=== PATIENT | male | born 1935 | race Two or more races ===

== ENCOUNTER 2025-08-02 09:06 | Inpatient (IN) | payer OTHER ==
[~2025-08-02] VITALS: Ht 157.5 cm; Wt 63.5 kg
[2025-08-02] MEDS ORDERED: OXYBUTYNIN CHLOR5 M1 PO (09:29)
[2025-08-02] MEDS ORDERED: CHILDREN'S ASPI81 MG PO (09:29)
[2025-08-02] MEDS ORDERED: IRBESARTAN75 MG PO (09:29)
[2025-08-02] MEDS ORDERED: GABAPENTIN300 M2 PO (09:29)
[2025-08-02] MEDS ORDERED: METFORMIN HCL500 M3 PO (09:30)
[2025-08-02] MEDS ORDERED: KAPSPARGO SPRIN25 MG PO (09:30)
[2025-08-02] MEDS ORDERED: GLIPIZIDE XL2.5 MG (09:30)
[2025-08-02] MEDS ORDERED: 0.9 % SODIUM CHLORIDE 500 ML IV STA (10:21)
[2025-08-02] MEDS ORDERED: MINERAL OIL 30 ML BLIST.PACK PO STA (10:22)
[2025-08-02] MEDS ORDERED: LACTULOSE 20 G/30 ML BLIST.PACK PO STA (10:22)
[2025-08-02] MEDS ORDERED: NA PHOS,M-B/NA PHOS,DI-BA 1 BOTTLE ENEMA RECTAL STA (10:23)
[2025-08-02] MEDS ORDERED: MAGNESIUM HYDROXIDE 30 ML BLIST.PACK PO STA (10:24)
[2025-08-02] MEDS ORDERED: MINERAL OIL 30 ML BLIST.PACK ONE (10:39)
[2025-08-02] MEDS ORDERED: LACTULOSE 20 G/30 ML BLIST.PACK ONE (10:39)
[2025-08-02] MEDS ORDERED: MAG HYDROX/ALUMINUM HYD/SIMETH 30 ML BLIST.PACK PO ONE (10:39)
[2025-08-02 11:00] LABS: BASO % 0.3 % (0.1-1.2); EOS # 0.03 (0.04-0.54); EOS % 0.3 % (0.7-7.0); LYMPH # 1.94 (1.18-3.74); LYMPH % 22.4 % (19.3-53.1); MONO # 4.72 (0.24-0.82); NEUT # 1.92 (1.56-6.13); NEUT % 22.3 % (34.0-71.1); RED CELL DISTRIBUTION WIDTH 19.1 % (11.6-14.4)
[2025-08-02 11:23] LABS: ALT/SGPT 14.0 U/L (12-78); AST/SGOT 7.0 U/L (15-37); BILIRUBIN TOTAL 0.81 mg/dL (0.3-1.2); BUN CREA RATIO 29.0 (7.0-25.0); CREATININE SERUM 1.09 mg/dL (0.70-1.30); GFR 63.84; GLOBULINA 4.8 G/DL (2.4-3.5); GLUCOSE FASTING 105.0 mg/dL (65-100); OSMOLALITY SERUM 287.0 MOSM/KG (275-295)
[2025-08-02 11:30] LABS: MONO % 54.5 % (4.7-12.5)
[2025-08-02 11:31] LABS: LYMPHOCYTE MAN 25.0 %; MONOCYTE MAN 43.0 %; NEUTROPHILS MAN 32.0 %
[2025-08-02] MEDS ORDERED: KETOROLAC TROMETHAMINE 30 MG VIAL IM STA (15:04)
[2025-08-02] MEDS ORDERED: KETOROLAC TROMETHAMINE 30 MG VIAL ONE (15:04)
[2025-08-02] MEDS ORDERED: BARIUM SULFATE 450 ML ORAL.SUSP PO ONE (15:04)
[2025-08-02] MEDS ORDERED: CIPROFLOXACIN IN 5 % DEXTROSE 200 ML IV SCH (22:04)
[2025-08-02] MEDS ORDERED: ENALAPRILAT DIHYDRATE 1.25 MG/ML VIAL IV PRN (22:15)
[2025-08-02] MEDS ORDERED: ONDANSETRON HCL 4 MG in 0.9 % SODIUM CHLORIDE 50 ML IV PRN (22:15)
[2025-08-02] MEDS ORDERED: DEXTROSE 50 % IN WATER 0.5 G/ML DISP.SYRIN IV PRN (22:15)
[2025-08-02] MEDS ORDERED: 0.9 % SODIUM CHLORIDE 1,000 ML IV SCH (22:15)
[2025-08-02] MEDS ORDERED: INSULIN LISPRO 1,000 UNIT/10 ML UNITS SUBCUTANEO PRN (22:15)
[2025-08-02] MEDS ORDERED: MORPHINE SULFATE 4 MG/ML CARTRIDGE IV PRN (22:15)
[2025-08-03 00:07] LABS: INR 1.24
[2025-08-03] MEDS ORDERED: FAMOTIDINE/PF 20 MG in 0.9 % SODIUM CHLORIDE 8 ML IV PUSH SCH (09:00)
[2025-08-03 10:18] VITALS: BP 122/53; O2SAT 99
[2025-08-03 12:04] VITALS: BP 122/54; O2SAT 98
[2025-08-03 16:03] VITALS: BP 107/65; O2SAT 97
[2025-08-03] MEDS ORDERED: PIPERACILLIN/TAZOBACTAM SODIUM 4.5 GM in 0.9 % SODIUM CHLORIDE 100 ML IV SCH (18:11)
[2025-08-03 18:18] LABS: URINE APPEARANCE Clear; URINE BILIRRUBIN Negative (NEGATIVE); URINE BLOOD Negative; URINE COLOR Dark Yellow; URINE GLUCOSE Negative (NEGATIVE); URINE KETONE 15 (NEGATIVE); URINE LEUKOCYTE Trace; URINE NITRATE Negative; URINE PROTEIN 30 (NEGATIVE); URINE UROBILINOGEN 1.0 E.U./dl
[2025-08-03 18:23] LABS: URINE BACTERIA 175.1 uL (0.0-1933); URINE EPITHELIAL CELLS 13.2 uL (0.0-38.8); URINE RBC 5.5 uL (0.0-20.8); URINE WBC 2.9 uL (0.0-23.2)
[2025-08-03] MEDS ORDERED: TUBERCULIN,PURIF.PROT.DERIV. 10 SKIN.TEST SKIN.TEST ID ONE (18:30)
[2025-08-03 18:40] LABS: URINE CAST 0.87 uL (0.0-1.40)
[2025-08-04] MEDS ORDERED: PIPERACILLIN/TAZOBACTAM SODIUM 3.375 GM in 0.9 % SODIUM CHLORIDE 100 ML IV SCH
[2025-08-04 02:57] VITALS: BP 123/68; O2SAT 98
[2025-08-04 08:25] VITALS: BP 126/63
[2025-08-04 15:59] VITALS: BP 153/59; O2SAT 94
[2025-08-05 01:18] VITALS: BP 70/50; O2SAT 100
[2025-08-05] MEDS ORDERED: EPINEPHRINE HCL/PF 1 MG/ML AMPUL IV PUSH SCH (01:45)
[2025-08-05] MEDS ORDERED: NOREPINEPHRINE BITARTRATE 8 MG in DEXTROSE 5 % IN WATER 250 ML IV SCH (01:45)
[2025-08-06 09:12] LABS: DHEA-SULFATE 98.3 ug/dL (20.8-226.4)
[2025-08-11 15:11] LABS: RENIN ACTIVITY 0.409 ng/mL/hr (0.167-5.380)
[2025-08-13 05:06] LABS: ALDOSTERONE SERUM < 2.0 ng/dL (0.0-30.0)
== END 2025-08-05 06:00 | disposition expired | DRG 395 ==
LOC: ER 09:06 → ICU-2 23:08 → MEDI 08-03 12:35
PROVIDERS: General Practice; Internal Medicine Endocrinology, Diabetes & Metabolism; ADMIT Student in an Organized Health Care Education/Training Program; ATTEND Student in an Organized Health Care Education/Training Program
PROC: BW21ZZZ Computerized Tomography (CT Scan) of Abdomen and Pelvis (ICD-10-PCS; principal; 2025-08-02)
PROC: 5A12012 Performance of Cardiac Output, Single, Manual (ICD-10-PCS; 2025-08-05)
DX: K59.31 Toxic megacolon (principal); D64.9 Anemia, unspecified; Z95.1 Presence of aortocoronary bypass graft